=== PATIENT | male | born 1990 | race Caucasian/White ===

== ENCOUNTER 2020-08-15 02:37 | Emergency (ER) | payer SELFPAY ==
[~2020-08-15] VITALS: Ht 175.3 cm; Wt 89.0 kg
[2020-08-15 02:39] VITALS: BP 116/92
== END 2020-08-15 03:30 | disposition left against medical advice (07) ==
LOC: ER 03:07
DX: Z53.21 Procedure and treatment not carried out due to patient leaving prior to being seen by health care provider (principal)